=== PATIENT | male | born 1955 | race Caucasian/White ===

== ENCOUNTER → 2022-07-05 12:34 | Outpatient (BNVA) | payer OTHER, SELFPAY | PROVIDERS: Visit Provider Surgery | DX: Z12.11 Encounter for screening for malignant neoplasm of colon (principal); K43.2 Incisional hernia without obstruction or gangrene | CPT/HCPCS: 99203 ==

== ENCOUNTER 2022-08-11 09:38 | Day surgery (SDC) | payer OTHER, SELFPAY ==
[2022-08-09 09:01] VITALS: BMI 28.5
[2022-08-11 10:01] VITALS: BP 156/103; PULSE 80; RESP 18; TEMP 35.9; O2SAT 99
[2022-08-11] MEDS: sodium chloride 0.9% 1,000 ML 30 ML IV (10:10)
--- NOTE | 2022-08-11 10:18 | P.HP_ITS ---
Providers/Chief Complaint Primary Care Provider: CHASITY Otoole Chief Complaint: Need for colon cancer screening History of Present Illness Saulo Bay is a 67 year old male here for his first colon cancer screening Medications/Allergies Home Medications Medication Instructions Recorded Confirmed Last Taken Type allopurinol 100 mg tablet 100 mg PO DAILY 07/05/22 08/09/22 08/10/22 History amlodipine 10 mg tablet 10 mg PO DAILY 07/05/22 08/09/22 08/10/22 History levothyroxine 25 mcg capsule 25 mcg PO DAILY 07/05/22 08/09/22 08/10/22 History simvastatin 20 mg tablet 20 mg PO DAILY 07/05/22 08/09/22 08/10/22 History Allergies Allergy/AdvReac Type Severity Reaction Status Date / Time No Known Allergies Allergy Unverified 07/05/22 12:53 PFSH Acute PFSH: Medical History (Updated 08/11/22 @ 10:19 by Justin Winters DO) Colon cancer screening History of prostate cancer Hyperthyroidism Surgical History H/O prostatectomy Hx of hernia repair Hx of lithotripsy Family History Mother Cancer lung cancer Social History Smoking and tobacco status: former smoker Vitals/I&O/Wt Last Vital Signs Temp 96.7 F L 08/11/22 10:01 Pulse 80 08/11/22 10:01 Resp 18 08/11/22 10:01 BP 156/103 08/11/22 10:01 Pulse Ox 99 08/11/22 10:01 O2 Del Method 08/11/22 10:01 A&P Assessment and plan (1) Colon cancer screening: Status: Acute Plan colonoscopy The risks and benefits of the procedure, including bleeding, infection, intes tinal perforation requiring surgery, missed lesion, or explained to the patient. He is understanding of the risks and wishes to proceed. Attestations Medical Necessity Statement*: Home Coding Level of Care Code Acute Full Stack Engineer for Chg Fwd Diagnoses Colon cancer screening Z12.11
[2022-08-11 10:51] VITALS: BP 106/71; PULSE 80; RESP 18; TEMP 36.4; O2SAT 98
[2022-08-11 10:56] VITALS: BP 147/83; PULSE 82; RESP 18; O2SAT 96
--- NOTE | 2022-08-11 13:38 | ANE.PACU2 ---
Inpatient post-anesthesia follow up: Airway intact: Yes Vital signs: Temperature 97.5 F Pulse Rate 82 Respiratory Rate 18 Blood Pressure 147/83 Pulse Oximetry 96 Oxygen Delivery Me thod Room Air Oxygen Flow Rate Fraction of Inspir ed Oxygen Hydration adequate: Yes Nausea and vomiting: No Pain level: 1 Mental status: Baseline
== END 2022-08-11 11:18 | disposition home or self-care (01) ==
PROVIDERS: PCP Nurse Practitioner; Visit Provider Surgery
PROC: 0DJD8ZZ Inspection of Lower Intestinal Tract, Via Natural or Artificial Opening Endoscopic (ICD-10-PCS; CPT 45378; principal; 2022-08-11 10:30)
DX: Z12.11 Encounter for screening for malignant neoplasm of colon (principal); Z85.46 Personal history of malignant neoplasm of prostate; E03.9 Hypothyroidism, unspecified; Z87.891 Personal history of nicotine dependence; K57.30 Diverticulosis of large intestine without perforation or abscess without bleeding
CPT/HCPCS: 45378; J7030

== ENCOUNTER → 2022-08-21 10:09 | Outpatient (BNVA) | payer OTHER, SELFPAY | PROVIDERS: PCP Nurse Practitioner; Visit Provider Surgery | DX: K43.2 Incisional hernia without obstruction or gangrene (principal) | CPT/HCPCS: 99213 ==

== ENCOUNTER 2023-04-06 10:27 | Outpatient (CLI) | payer OTHER, SELFPAY ==
--- NOTE | 2023-04-06 10:34 | CT_ITS ---
WS: [id number] CT chest w con* [id number] HISTORY: ABNORMAL FINDINGS ON CHEST XR TECHNIQUE: Axial imaging performed through the thorax. Coronal and sagittal reformats are submitted. All CT scans at [facility] use at least one of these dose optimization techniques: automated exposure control; mA and/or kV adjustment per patient size (includes targeted exams where dose is mat ched to clinical indication); or iterative reconstruction. CONTRAST: Omnipaque 350; 100 mL IV. DLP: 423.38 mGy.cm COMPARISON: None available. Lungs and central airway: RIGHT upper lobe mass containing cystic and solid component measuring 1.9 x 1.4 cm. This mass abuts the superior major fissure. The nodular component measures 1.2 x 1.1 cm. No additional masses are identified. No pneumonia. Pleura: Normal. No pleural effusion. Heart and pericardium: Normal size heart with no pericardial effusion. Mediastinum and gume: No mediastinum or hilar adenopathy. Vessels: Very mild atherosclerosis aorta. Chest wall and lower neck: No soft tissue masses. Upper abdomen: Small hiatal hernia. Low-attenuation masses within the liver probably cysts. Some of t hese are too small to characterize. The largest in the LEFT lobe measures 11 mm. LEFT renal cyst juan ures 2.5 x 3.3 cm. No adrenal mass. Osseous structures: No destructive process. CT/CT chest w con* [id number] IMPRESSION: 1. RIGHT upper lobe cavitary nodule measures 1.9 x 1.4 cm. Solid nodular compo nent is 1.2 x 1.1 cm. Recommend follow-up PET/CT imaging to exclude neoplasm. 2. No adenopathy. 3. Hepatic and LEFT renal cysts.
[2023-04-06] MEDS: iohexol 350 mg/mL 500 mL Btl (per mL) IV (10:37)
[2023-04-06 10:39] LABS: Blood Urea Nitrogen 15 mg/dL (8-23); Glomerular Filtration Rate 60.6 mL/min (90-130)
== END 2023-04-06 10:28 | disposition home or self-care (01) ==
PROVIDERS: PCP Nurse Practitioner; Visit Provider Nurse Practitioner
DX: R91.8 Other nonspecific abnormal finding of lung field (principal); K76.89 Other specified diseases of liver; N28.1 Cyst of kidney, acquired; Z01.89 Encounter for other specified special examinations
CPT/HCPCS: 71260; 82565; 84520; Q9967

== ENCOUNTER 2023-05-05 05:38 | Outpatient (CLI) | payer OTHER, SELFPAY ==
--- NOTE | 2023-05-05 | PETR_ITS ---
PROCEDURE INFORMATION: Exam: PET/CT Skull Base to Mid-thigh Exam date and time: 05/05/2023 9:24 AM Age: 68 years old Clinical indication: Abnormal findings; 1. Right upper lobe cavitary nodule measures 1.9 x 1.4 cm. Solid nodular component is 1.2 x 1.1 cm. Recommend follow-up pet/ct imaging to exclude neoplasm; Patient HX: HX of prostate cancer; Additional info: Right upper lobe mass discovered on CT LABS AND CLINICAL REPORTS: Glucose: 115 mg/dl Treatment strategy for malignancy (PET staging): Initial Staging (PI) TECHNIQUE: Imaging protocol: Following at least four-hour fasting and following the injection of radiopharmaceutical, low dose CT images were obtained. Then, PET images were obtained. Attenuation corrected images were constructed using the CT scan. Fused images of PET and CT were reviewed. The standardized uptake values (SUV) reported below are maximum values within a region of interest, expressed in gm/ml. Exam includes orbital meatal line to mid-thigh. Radiopharmaceutical: 15.57 mCi F-18 FDG (Fluorodeoxyglucose), IV. Time of imaging post radiopharmaceutical administration: 57.1 minutes Injection site: Left antecubital vein. COMPARISON: CT chest w con* [id number] 04/06/2023 10:41 AM FINDINGS: Brain: Visualized brain has normal physiologic uptake. Pharynx: No abnormal uptake. Larynx: No abnormal uptake. Thyroid: The thyroid gland is normal. Lungs, pleura and trachea: In the posterior segment of the right upper lobe, an ovoid pleural-based cavitary lesion abuts the major fissure. It is unchanged in size compared to the CT on 04/06/2023. It is 1.4 x 1.9 x 1.4 cm (transverse x ant-post x craniocaudal). Its SUV max is only 0.9, which is not suspicious for malignancy. On the outside CT, the solid component of the lesion has a density of -60 HU, which suggests that it is a benign fat containing lesion. The lungs are otherwise clear. No pleural effusion. Heart: No cardiomegaly or pericardial effusion. Mediastinal space: No abnormal uptake. Diaphragm: Mild umbilical eventration. Liver: There is a 1.3 cm cyst in the left hepatic lobe. Additional hypodense lesions of the liver too small to definitely characterize. Gallbladder and bile ducts: No abnormal uptake. Pancreas: No abnormal uptake. Spleen: No abnormal uptake. Adrenal glands: The adrenals are normal. Kidneys and ureters: There is a 3.2 cm simple appearing cyst in the upper left kidney. Nonobstructing calyceal stones in the lower left kidney are 4 mm and 3 mm. Stomach and bowel: Mild colonic diverticulosis without evidence of diverticulitis. The colon is otherwise unremarkable. No acute colonic distention or inflammation. Reproductive: Post prostatectomy. Vasculature: There is mild calcific atherosclerosis of the abdominal aorta and iliac arteries. There is no aneurysm. Lymph nodes: No abnormal uptake. No lymphadenopathy in the head, neck, chest, abdomen, pelvis or extremities. Bones/joints: No metabolically active areas. Soft tissues: No metabolically active areas. PET/PET [facility] INITIAL [id number] IMPRESSION: 1. In the posterior segment of the right upper lobe, an ovoid pleural-based cavitary lesion abuts the major fissure. It is unchanged in size compared to the CT on 04/06/2023. It is 1.4 x 1.9 x 1.4 cm (transverse x ant-post x craniocaudal). Its SUV max is only 0.9, which is not suspicious for malignancy. On the outside CT, the solid component of the lesion has a density of -60 HU, which suggests that it is a benign fat containing lesion. A follow-up noncontrast CT is recommended in 3 months in order to document stability. For that follow-up CT, 3 mm thick axial, coronal and sagittal slices are recommended in order to improve the accuracy of density measurements. 2. Nonobstructive left nephrolithiasis. No hydronephrosis. 3. Mild colonic diverticulosis without evidence of diverticulitis. 4. Post prostatectomy.
== END 2023-05-05 05:39 | disposition home or self-care (01) ==
LOC: RAD 05-07 05:38
PROVIDERS: PCP Nurse Practitioner; Visit Provider Nurse Practitioner
DX: C61 Malignant neoplasm of prostate (principal); I10 Essential (primary) hypertension; R91.8 Other nonspecific abnormal finding of lung field
CPT/HCPCS: 78815; A9552

== ENCOUNTER 2023-05-14 07:37 | Outpatient (CLI) | payer OTHER, SELFPAY ==
--- NOTE | 2023-05-14 07:43 | USCV_ITS ---
ShaniqueSaulo Age: 68 Gender: M : 1955 Exam Date: 05/14/2023 08:08 Ordering Phys: Tanesha Bonilla Technologist: DAVID Exam Location: [facility] [place] Indication: AAA SCREENING HISTORY: Diameter (cm) AP x Transverse x Length Velocity (cm/s) Waveform Prox Aorta: 1.42 x 1.93 x 109.90 Triphasic Mid Aorta: 1.64 x 1.71 x 121.50 Triphasic Distal Aorta: 1.53 x 1.52 x 123.90 Triphasic Right Iliac Prox: 1.05 x 1.09 x 153.60 Triphasic Left Iliac Prox: 0.94 x 1.19 x 147.20 Triphasic Stent Prox Landing x x Aneurysmal Sac Max x x Lt Lat Sac Dim Rt Lat Sac Dim Stent Dist Landing x x Right Iliac Stent x x Left Iliac Stent x x Right Renal Art Left Renal Art FINDINGS: Comparison: none available. No evidence of abdominal aortic or bilateral iliac aneurysm. Ectatic abdominal aorta with evidence of atherosclerotic plaque noted. There is evidence of atherosclerotic plaque no significan stenosis in the right common iliac artery. There is evidence of atherosclerotic plaque no significan stenosis in the left common iliac artery. CONCLUSIONS No evidence of abdominal aortic or bilateral iliac aneurysm. Dr. Brandy Kaiser DO (Electronically Signed) Final Date: 14 May 2023 08:50 S
== END 2023-05-14 07:38 | disposition home or self-care (01) ==
LOC: RAD 07:37
PROVIDERS: PCP Nurse Practitioner; Visit Provider Nurse Practitioner
DX: Z13.6 Encounter for screening for cardiovascular disorders (principal)
CPT/HCPCS: 76706

== ENCOUNTER 2023-09-19 09:35 | Outpatient (CLI) | payer OTHER, SELFPAY ==
--- NOTE | 2023-09-19 10:00 | CTR_ITS ---
PROCEDURE INFORMATION: Exam: CT Chest Without Contrast; Diagnostic Exam date and time: 09/19/2023 10:22 AM Age: 68 years old Clinical indication: Condition or disease; Lung condition and disease; Pulmonary nodule, solitary; Primary cancer: Prostate; Additional info: 3 month f/u lung nodule TECHNIQUE: Imaging protocol: Diagnostic computed tomography of the chest without contrast. Radiation optimization: All CT scans at this facility use at least one of these dose optimization techniques: automated exposure control; mA and/or kV adjustment per patient size (includes targeted exams where dose is matched to clinical indication); or iterative reconstruction. REPORTING DATA: Count of CT and Cardiac NM exams in prior 12 months: This patient has received 2 known CTs and 0 known cardiac nuclear medicine studies in the 12 months prior to the current study. COMPARISON: CT chest w con* [id number] 04/06/2023 10:41 AM RADIATION DOSE METRICS: Total DLP (mGy-cm): 477.11 FINDINGS: Lungs: There are calcified granulomas in the inferior right lower lobe. There is a peripherally cavitary 1.9 cm nodule in the posteroinferior right upper lobe. The solid component measures fat density. The nodule is stable since 04/06/2023. The left lung is clear. Pleural spaces: There is no pleural effusion or pneumothorax. Heart: Heart size is normal. There is no pericardial effusion. Coronary arteries: There is mild coronary artery calcification. Lymph nodes: There is no mediastinal or hilar lymphadenopathy. Vasculature: There is mild aortic atherosclerotic disease. Liver: There are scattered liver cysts measuring up to 11 mm. Kidneys and ureters: There is a simple 3.2 cm left renal cyst exophytic from the upper pole. Bones/joints: Bones are unremarkable. Soft tissues: The extrathoracic soft tissues are unremarkable. CT/CT chest wo con [id number] IMPRESSION: Stable fat density nodule in the right upper lobe consistent with a benign hamartoma. Fleischner Society follow up recommendations for incidental nodules are not indicated. Follow up per the patient's medical condition. COMMENTS: Consistent with the [employer]'s Incidental Findings Committee white paper (J Am Joni Radiol 2018): Any incidental renal lesion less than 1 cm or classified as too small to characterize, or any incidental cystic renal lesion characterized as simple-appearing, is likely benign. No follow-up imaging is recommended for these lesions per consensus recommendations based on imaging criteria.
== END 2023-09-19 09:36 | disposition home or self-care (01) ==
LOC: RAD 09:35
PROVIDERS: PCP Nurse Practitioner; Visit Provider Nurse Practitioner
DX: R91.1 Solitary pulmonary nodule (principal)
CPT/HCPCS: 71250

== ENCOUNTER 2024-04-03 12:29 | Outpatient (CLI) | payer OTHER, SELFPAY ==
--- NOTE | 2024-04-03 12:34 | USCV_ITS ---
Saulo Bay Age: 68 Gender: M : 1955 Exam Date: 04/03/2024 13:19 Ordering Phys: Cesilia Howe APRN Technologist: GENA [place]am Location[place] [facility] [place] Indication: Legs Swelling BP: / HR: 78 Rhythm: Sinus Technical Quality: Adequate MEASUREMENTS (Male / Female) Normal Values 2D ECHO LV Diastolic Diameter PLAX 5.1 cm 4.2 - 5.9 / 3.9 - 5.3 cm LV Systolic Diameter PLAX 3.8 cm IVS Diastolic Thickness 1.1 cm 0.6 - 1.0 / 0.6 - 0.9 cm IVS Systolic Thickness 1.6 cm LVPW Diastolic Thickness 1.3 cm 0.6 - 1.0 / 0.6 - 0.9 cm LVPW Systolic Thickness 1.8 cm LVOT Diameter 2.0 cm LV Ejection Fraction 2D Teich 50.9 % LV Ejection Fraction MOD 2C 58.0 % LV Ejection Fraction 2C AL 61.7 % LA Diameter 3.1 cm RA Systolic Volume 4C AL 20.3 ml RA Systolic Volume 4C MOD 19.7 ml LA Sys Volume AL 42.1 cm cubed LA Sys Volume Index AL 18.8 cm cubed/m squared Aorta at Sinotubular Diameter 2.7 cm IVC Diameter 1.1 cm M-MODE LA Ao Ratio MM 1.1 AV Cusp Separation MM 1.4 cm DOPPLER AV Peak Velocity 118.0 cm/s LVOT Peak Velocity 100.0 cm/s AV Area Cont Eq vti 2.9 cm squared AV Area Cont Eq pk 2.7 cm squared MV Area PHT 4.4 cm squared Mitral E to A Ratio 0.7 TV Peak Velocity 101.0 cm/s TR Peak Velocity 104.0 cm/s TR Peak Gradient 4.3 mmHg TR Mean Velocity 74.0 cm/s TR Mean Gradient 2.5 mmHg TR Velocity Time Integral 21.8 cm TV Peak E Velocity 48.0 cm/s Right Atrial Pressure 3.0 mmHg Pulmonary Artery Systolic Pressu 7.3 mmHg PV Peak Velocity 82.0 cm/s RV Ejection Time 0.4 s FINDINGS Left Ventricle Normal left ventricular size and systolic function, EF 62%.No regional wall motion abnormalities. Grade I/IV diastolic dysfunction (abnormal relaxation filling pattern), normal to mildly elevated filling pressures. Right Ventricle The right ventricle is normal in size and function. Right Atrium The right atrium is normal in size. Left Atrium The left atrium is normal in size. Mitral Valve No gross abnormalities noted Aortic Valve No gross abnormalities noted Tricuspid Valve No gross abnormalities noted Pulmonic Valve Trace pulmonary valve regurgitation. Pericardium Normal pericardium without effusion. Aorta Normal ascending aorta dimension. IVC The inferior vena cava appears normal. CONCLUSIONS Normal left ventricular size and systolic function, EF 62%.No regional wall motion abnormalities. Grade I/IV diastolic dysfunction (abnormal relaxation filling pattern), normal to mildly elevated filling pressures. Trace pulmonary valve regurgitation. No significant valvular lesions. Normal cardiac chamber sizes. No similar previous studies are available for comparison Dr Orion James MD FACC (Electronically Signed) Final Date: 05 Apr 2024 13:02 S
== END 2024-04-03 12:30 | disposition home or self-care (01) ==
LOC: RAD 12:30
PROVIDERS: PCP Nurse Practitioner; Visit Provider Nurse Practitioner Family
DX: R06.02 Shortness of breath (principal); R60.0 Localized edema; I37.1 Nonrheumatic pulmonary valve insufficiency
CPT/HCPCS: 93306

== ENCOUNTER → 2024-05-12 14:14 | Outpatient (BNVA) | payer OTHER, SELFPAY | PROVIDERS: PCP Nurse Practitioner; Referring Provider Nurse Practitioner; Visit Provider Specialist | DX: M17.0 Bilateral primary osteoarthritis of knee | CPT/HCPCS: 20610; 73560; 73565; 99204 ==

== ENCOUNTER → 2024-09-25 13:24 | Outpatient (BNVA) | payer OTHER, SELFPAY | PROVIDERS: PCP Nurse Practitioner; Visit Provider Internal Medicine Cardiovascular Disease | DX: R07.9 Chest pain, unspecified (principal); I47.11 Inappropriate sinus tachycardia, so stated; I44.4 Left anterior fascicular block; I45.9 Conduction disorder, unspecified | CPT/HCPCS: 93005 ==

== ENCOUNTER → 2024-11-21 07:50 | Outpatient (BNVA) | payer OTHER, SELFPAY | PROVIDERS: PCP Nurse Practitioner; Visit Provider Specialist | DX: M17.0 Bilateral primary osteoarthritis of knee (principal); Z71.89 Other specified counseling | CPT/HCPCS: 20610; 73560; 73565; J7327 ==

== ENCOUNTER → 2025-03-30 08:35 | Outpatient (BNVA) | payer OTHER, SELFPAY | PROVIDERS: PCP Nurse Practitioner; Visit Provider Specialist | DX: M25.561 Pain in right knee (principal); M17.12 Unilateral primary osteoarthritis, left knee | CPT/HCPCS: 73560; 73565; 99214 ==

== ENCOUNTER 2025-04-08 08:47 | Outpatient (CLI) | payer OTHER, SELFPAY ==
--- NOTE | 2025-04-08 09:00 | CT_ITS ---
WS: [id number] CT LEFT KNEE, NONCONTRAST [facility] TECHNIQUE: Noncontrast CT of the LEFT knee to include the LEFT hip and ankle. CLINICAL INFORMATION: PER [facility] PROTOCOL COMPARISON: None. DLP: 966.[address] scans at [facility] use at least one of these dose optimization techniques: automated exposure control; mA and/or kV adjustment per patient size (includes targeted exams where dose is matched to clinical indication); or iterative reconstruction. FINDINGS: Advanced tricompartmental arthritis LEFT knee. Joint space narrowing worse in the medial joint compartment. Hypertrophic patella. Small suprapatellar effusion. Sigmoid diverticulosis. Vascular calcification CT/CT knee LT [facility] [id number] IMPRESSION: Images obtained for preoperative purposes.
== END 2025-04-08 08:48 | disposition home or self-care (01) ==
PROVIDERS: PCP Nurse Practitioner; Visit Provider Specialist
DX: M17.12 Unilateral primary osteoarthritis, left knee (principal)
CPT/HCPCS: 73700

== ENCOUNTER 2025-04-22 08:33 | Emergency (ER) | payer OTHER, SELFPAY ==
--- NOTE | 2025-04-22 08:46 | ECG_ITS ---
[employer] Test Date: 2025-04-22 Pat Name: Saulo Bay Department: Room: Gender: Male Sales Counselor: : 1955 Requested By: Edu Li Order Number: [id number] Reading MD: FAYE ZHOU Measurements Intervals [place] Rate: 77 P: 38 AZ: 168 QRS: -58 QRSD: 114 T: 35 QT: 380 QTc: 432 Interpretive Statements SINUS RHYTHM PATTERN CONSISTENT WITH PULMONARY DISEASE INCOMPLETE RIGHT BUNDLE BRANCH BLOCK [90+ ms QRS DURATION, TERMINAL R IN V1/V2, 40+ ms S IN I/aVL/V4/V5/V6] LEFT ANTERIOR FASCICULAR BLOCK [QRS AXIS <= -45, QR IN I, RS IN II] Compared to ECG 09/25/2024 13:30:41 Incomplete right bundle-branch block now present Left anterior fascicular block now present Sinus tachycardia no longer present Left-axis deviation no longer present Intraventricular conduction delay no longer present Electronically Signed On 04-22-2025 22:51:43 CDT by FAYE ZHOU [email or web address]
[2025-04-22 08:53] VITALS: BP 164/106; PULSE 84; RESP 22; TEMP 36.8; O2SAT 97
--- NOTE | 2025-04-22 08:56 | XR_ITS ---
WS: [id number] XR forearm LT 2V [id number] REASON FOR EXAM: pain FINDINGS: Left radius and ulna are intact. No fracture or focal bone lesion. No focal soft tissue abnormality. XR/XR forearm LT 2V [id number] IMPRESSION: No acute abnormality.
--- NOTE | 2025-04-22 08:56 | XR_ITS ---
WS: [id number] XR wrist LT 2V [id number] REASON FOR EXAM: pain FINDINGS: No fracture or focal bone lesion. There is mild narrowing of the radiocarpal joint space with moderate subchondral sclerosis. Radiocarpal and intercarpal joint spaces are intact and relatively well preserved. No joint malalignment. Significant joint space narrowing with moderate subchondral sclerosis and osteophytosis in the carpometacarpal joint of the thumb. XR/XR wrist LT 2V [id number] IMPRESSION: Osteoarthritis with no acute abnormality as above.
--- NOTE | 2025-04-22 09:54 | W.ED.EXTPRO ---
HPI - Extremity Problem General: Chief complaint: Extremity Injury, Upper Stated complaint: L arm pain Time Seen by Provider: 04/22/25 08:45 History of Present Illness: 70-year-old male presents to the emergency room with left wrist pain 2 days ago he fell on an outstretched left hand is complaining of pain along the distal radius into the wrist. He has some moderate swelling there is no obvious deformity. Pain with any attempted motion at the wrist. Denies any other injuries. The initial fall was due to stumbling. Associated symptoms: Deny chest pain Related Data Home Medications ?Medication ?Instructions ?Recorded ?Confirmed allopurinol 100 mg tablet 100 mg PO DAILY 07/05/22 04/22/25 simvastatin 20 mg tablet 20 mg PO QPM 07/05/22 04/22/25 furosemide 20 mg tablet (Lasix) 20 mg PO QAM 05/12/24 04/22/25 potassium chloride 10 mEq 10 meq PO DAILY 05/12/24 04/22/25 tablet,extended release levothyroxine 50 mcg capsule 50 mcg PO DAILY 04/22/25 04/22/25 Previous Rx's ?Medication ?Instructions ?Recorded metoprolol succinate 25 mg 25 mg PO DAILY #90 tabs 10/10/24 tablet,extended release 24 hr valsartan 160 mg tablet 160 mg PO DAILY #90 tabs 10/10/24 celecoxib 200 mg capsule (Celebrex) 200 mg PO BID PRN pain 3 months 03/30/25 #180 caps meloxicam 15 mg tablet 15 mg PO DAILY #30 tabs 03/30/25 tramadol 50 mg tablet 50 mg PO Q8H PRN pain #7 tabs 04/22/25 Allergies Allergy/AdvReac Type Severity Reaction Status Date / Time No Known Allergies Allergy Verified 03/30/25 07:33 Review of Systems Card: Denies: chest pain Resp: Denies: dyspnea GI: Denies: abdominal pain Musc: Denies: neck pain or back pain PFS ED PFSH: Medical History Hyperthyroidism Colon cancer screening History of prostate cancer Surgical History H/O prostatectomy Hx of lithotripsy Hx of hernia repair Family History Mother Cancer lung cancer Social History Smoking and tobacco/nicotine status: former use of tobacco/nicotine (Quit 1993) Physical Exam Const: COMMON NORMALS: no acute distress GENERAL APPEARANCE: cooperative and comfortable ORIENTATION/CONSCIOUSNESS: Yes awake, Yes oriented to person, Yes oriented to place and Yes oriented to time HENMT: COMMON NORMALS: normocephalic, atraumatic and hearing grossly normal bilaterally HEAD & SCALP: normocephalic and atraumatic Resp: COMMON NORMALS: normal respiratory effort, No retractions and No use of accessory muscles Extremity: OTHER: Examination of the left wrist moderate swelling and joint effusion. Pain at the distal radius pain with axial loading mild discomfort at the anatomical snuffbox neurovascularly intact Limited range of motion of the wrist due to pain Neuro: SENSORIUM/ORIENTATION: Yes oriented to person, Yes oriented to place and Yes oriented to time Course Vital Signs: Vital signs: Vital Signs Temperature 98.3 F 04/22/25 08:53 Pulse Rate 84 04/22/25 08:53 Respiratory Rate 22 H 04/22/25 08:53 Blood Pressure 164/106 04/22/25 08:53 Pulse Oximetry 97 04/22/25 08:53 Oxygen Delivery Me thod Room Air 04/22/25 08:53 MDM - Extremity (Nontraumatic) Medical Decision Making Differential diagnosis includes fracture hemarthrosis tendon or ligament injury No acute fracture on the x-ray however patient had continued pain CT of the wrist was done no occult fracture noted on the CT. He still has limited range of motion due to pain I think he does have some hemarthrosis secondary to trauma we will put him in a splint refer him to orthopedics pain medications given encourage him to ice and elevate. Lab Data Radiology Impressions Forearm X-Ray 04/22/25 08:56 IMPRESSION: No acute abnormality. Wrist X-Ray 04/22/25 08:56 IMPRESSION: Osteoarthritis with no acute abnormality as above. Wrist CT 04/22/25 10:02 IMPRESSION: No visualized fractures All radiology interpretation(s) finalized by discharge Discharge Plan Discharge Patient Disposition: Home Clinical Impression: Sprain and strain of wrist Condition: Stable Prescriptions: New tramadol 50 mg tablet 50 mg PO Q8H PRN (Reason: pain) Qty: 7 0RF No Action allopurinol 100 mg tablet 100 mg PO DAILY simvastatin 20 mg tablet 20 mg PO QPM celecoxib [Celebrex] 200 mg capsule 200 mg PO BID PRN (Reason: pain) 90 Days Qty: 180 0RF meloxicam 15 mg tablet 15 mg PO DAILY Qty: 30 0RF furosemide [Lasix] 20 mg tablet 20 mg PO QAM potassium chloride 10 mEq tablet extended release 10 meq PO DAILY metoprolol succinate 25 mg tablet extended release 24 hr 25 mg PO DAILY Qty: 90 3RF valsartan 160 mg tablet 160 mg PO DAILY Qty: 90 3RF levothyroxine 50 mcg Capsule 50 mcg PO DAILY Discharge Orders: Discharge ED (Routine); Ordered 04/22/25 Ordered By: Edu Rodriguez Referrals: Tanesha Bonilla FNP [Primary Care Provider, Nurse Practitioner] Discharge Diet: Usual diet Discharge Activity: Resume usual activity Patient Instructions: Opioid Safety, Pain Management Activity Restrictions/Additional Instructions: Thank you for choosing [facility] for your healthcare needs today. It is very important that you follow up as instructed or that you return to the Emergency Department should you have concerns or if your condition changes or worsens in any way. You were seen in the emergency room with left wrist pain after a fall. X-rays were negative you did have a noticeable amount of swelling in the joint a CT was done no occult fracture was noted. Suspect you sprained your wrist. Placed you in a splint to use for comfort. You are given tramadol to use as needed for pain you can also use the meloxicam or Celebrex that you have previously been prescribed case management make arrangements for follow-up with orthopedics. Print Language: Burundian Coding Level of Care Code ED Reproductive Surgeon for Moon Valencia
--- NOTE | 2025-04-22 10:02 | CT_ITS ---
WS: [id number] Noncontrast CT LEFT wrist TECHNIQUE: Noncontrast CT LEFT wrist with coronal and sagittal reformatted images. CLINICAL INFORMATION: Occult fracture fall 2 days ago DLP: 85.[address] scans at [facility] use at least one of these dose optimization techniques: automated exposure control; mA and/or kV adjustment per patient size (includes targeted exams where dose is matched to clinical indication); or iterative reconstruction. FINDINGS: Moderate narrowing of the radiocarpal articulation. Normal scaphoid and lunate. Degenerative arthritis at the first CMC. Degenerative arthritis at the DRUJ. Moderate soft tissue edema. Subchondral cystic change involving the ulna at the DRUJ. Subchondral cystic changes involving the proximal and distal carpal row. CT/CT wrist LT wo con* [id number] IMPRESSION: No visualized fractures
== END 2025-04-22 11:27 | disposition home or self-care (01) ==
PROVIDERS: Emergency Provider Family Medicine; PCP Nurse Practitioner
DX: S66.912A Strain of unspecified muscle, fascia and tendon at wrist and hand level, left hand, initial encounter (principal); Z87.891 Personal history of nicotine dependence; Z85.46 Personal history of malignant neoplasm of prostate; W19.XXXA Unspecified fall, initial encounter
CPT/HCPCS: 29125; 73090; 73100; 73200; 93005; 99284

== ENCOUNTER → 2025-04-30 08:13 | Outpatient (BNVA) | payer OTHER, SELFPAY | PROVIDERS: PCP Nurse Practitioner; Visit Provider Orthopaedic Surgery | DX: S69.92XA Unspecified injury of left wrist, hand and finger(s), initial encounter (principal); W01.0XXA Fall on same level from slipping, tripping and stumbling without subsequent striking against object, initial encounter | CPT/HCPCS: 99204 ==

== ENCOUNTER 2025-04-30 09:29 | Outpatient (CLI) | payer OTHER, SELFPAY | END 2025-04-30 09:30 | disposition home or self-care (01) | LOC: SPT 09:30 | PROVIDERS: PCP Nurse Practitioner; Visit Provider Orthopaedic Surgery | DX: Z46.89 Encounter for fitting and adjustment of other specified devices (principal); S69.90XD Unspecified injury of unspecified wrist, hand and finger(s), subsequent encounter; X58.XXXD Exposure to other specified factors, subsequent encounter | CPT/HCPCS: L3908 ==